=== PATIENT | male | born 1985 | race Caucasian/White ===

== ENCOUNTER 2020-09-24 12:12 | Emergency (ER) | payer BC, SELFPAY ==
[2020-09-24 12:14] VITALS: BP 127/68; PULSE 78; RESP 15; TEMP 36.7; O2SAT 99; BMI 31.1
--- NOTE | 2020-09-24 12:41 | EDS_ITS ---
HPI History of Present Illness Chief Complaint: Back Narrative Narrative: Lumbar back pain today after bending over to help son patient is a history of lumbar back ailment he intermittently sees a chiropractor for chiropractic therapy he has no known history of significant back disorder or structural disorder disc disease. Indicates his usual state of health today he bent over to help his son do something he had pain to the lumbar back which has had before the pain persisted came in for evaluation. No numbness no paresthesias no radiation no bowel bladder complaints, no trauma no red flags Past medical history occasional back ailment PFSH PFSH Home Medications ibuprofen 600 mg PO Q6H PRN PRN #20 tablet 09/24/20 [Rx Last Taken Unknown] Allergy/AdvReac Type Severity Reaction Status Date / Time No Known Allergies Allergy Verified 09/24/20 12:14 ROS ROS ED ROS Narrative Lumbar back pain without radiation Constitutional Constitutional ED: Reports subjective, sweats and other; Denies chills, fever(s) or weight loss Eyes Eyes: Denies blurry vision or change in vision ENT ENT ED: Denies ear pain Cardiovascular Cardiovascular: Denies chest pain or palpitations Respiratory/Chest Respiratory/Chest: Denies dyspnea Gastrointestinal Gastrointestinal: Denies abdominal pain, nausea or vomiting Genitourinary Genitourinary ED: Denies dysuria or hematuria Musculoskeletal Musculoskeletal: Denies arthralgias or myalgias Integumentary Reports rash; Denies abscess Neurologic Neurologic: Denies weakness Psychiatric Psychiatric: Denies anxiety or depression Endocrine Endocrinology: Denies polydipsia or polyuria Allergic/Immunologic Allergic/Immunologic ED: Denies urticaria EXAM Physical Exam Narrative Exam Narrative: Patient is a pain to the low lumbar back it does not radiate his abdomen soft nontender is full range of motion lower extremities to all areas and muscle groups no signs of cauda equina no neurologic abnormalities exam to observation is unremarkable see below Const Vital Signs: 09/24/20 12:14 Temperature 98.1 F Temperature Source Temporal Pulse Rate 78 Respiratory Rate 15 Blood Pressure 127/68 H Blood Pressure Mean 87 Pulse Ox 99 Oxygen Delivery Method Room Air Positive well developed General Appearance ED: well developed HEENT Reports normocephalic Negative for trauma Eyes EOMs intact bilaterally Neck supple Chest Wall inspection of chest normal Resp normal respiratory effort Cardio regular rate GI non-tender and non-distended Back/Spine Back/Spine Narrative: unremarkable Extremity normal to inspection Neuro oriented x3 and CN's II-XII intact bilaterally Sensorium / Orientation: alert Psych mental status grossly normal Skin no rashes or lesions noted MDM MDM MDM Narrative Medical decision making narrative: Discussed all that with the patient this time will treat with morphine Toradol acetaminophen he understands if he is not i mproved and follow-up outpatient rise further diagnostic management options he will do so be discharged on Napros[facility] [place] as rescue medicine and return for change in symptoms Home stable Final impression lumbar back strain Discharge Plan Triage Chief Complaint: Back ED Provider: Morgan Anthony Dx/Rx/DC Orders Instructions: ED Back Spasm, No Trauma Prescriptions: New ibuprofen 600 MG tablet 600 mg PO Q6H PRN PRN (Reason: pain) Qty: 20 RF: 0 Primary Care Provider: Care Physician,No Primary Referrals: NOT,DEFINED [NON-STAFF] -
[2020-09-24] MEDS: morphine 8 MG/ML Syringe SC (12:54)
[2020-09-24] MEDS: Ketorolac 60 MG/2 ML Vial IM (12:55)
[2020-09-24] MEDS: Acetaminophen 500 MG Tablet 1000 MG PO (12:56)
[2020-09-24] MEDS: Ondansetron 8 MG Tablet PO (12:56)
[2020-09-24 13:33] VITALS: BP 113/76; PULSE 71; RESP 16; O2SAT 97
== END 2020-09-24 13:48 | disposition home or self-care (01) ==
LOC: ED 12:45
PROVIDERS: Emergency Provider Emergency Medicine
DX: S39.012A Strain of muscle, fascia and tendon of lower back, initial encounter (principal); X58.XXXA Exposure to other specified factors, initial encounter
CPT/HCPCS: 96372; 96374; 99283